=== PATIENT | female | born 1980 | race Two or more races ===

== ENCOUNTER 2017-08-24 21:21 | Emergency (ER) | payer MEDICAID ==
[~2017-08-24] VITALS: Ht 165.1 cm; Wt 76.7 kg
[2017-08-24] MEDS ORDERED: NKM (21:56)
[2017-08-24 22:00] VITALS: BP 117/77
[2017-08-24] MEDS ORDERED: Lidocaine 1% Plain 30 ml INJ ONE (22:30)
--- NOTE | 2017-08-24 22:34 | Emergency Room Report ---
History of Present Illness General Chief Complaint: General Complaint Source: Patient Present Illness HPI 37-year-old female no significant past medical history presenting with lump to neck that has been painful for the last week. States that she's had a small bump there for the last year, however states that for the last week it's gotten bigger and more painful. No fever no chills. No history of abscesses in the past Allergies: Coded Allergies: No Known Allergies (Unverified , 08/24/17) Patient History Past Medical History: see triage record Past Surgical History: none Pertinent Family History: none Last Menstrual Period: LAST MONTH Reviewed Nursing Documentation: PMH: Agreed; PSxH: Agreed Nursing Documentation-PMH Past Medical History: No Stated History Review of Systems All Other Systems: negative except mentioned in HPI Physical Exam Vital Signs Date Time Temp Pulse Resp B/P (MAP) Pulse Ox O2 Delivery O2 Flow Rate FiO2 08/24/17 21:46 98.5 72 16 117/77 97 Room Air 98.4 Sp02 EP Interpretation: reviewed, normal General Appearance: alert, GCS 15, non-toxic, mild distress Head: normocephalic, atraumatic Eyes: bilateral eye normal inspection, bilateral eye PERRL, bilateral eye EOMI ENT: normal ENT inspection, normal pharynx, normal voice, moist mucus membranes Neck: other - Back of neck, left-sided, 2 x 2 area of fluctuant mass, tender Respiratory: normal inspection, lungs clear, normal breath sounds, no respiratory distress, no retraction, no wheezing, speaking full sentences, chest symmetrical Cardiovascular #1: normal inspection, regular rate, rhythm, normal capillary refill Cardiovascular #2: 2+ radial (R), 2+ radial (L) Gastrointestinal: normal inspection, non tender, soft, no guarding Musculoskeletal: normal inspection, back normal, normal range of motion, non- tender Neurologic: normal inspection, alert, oriented x3, responsive, motor strength/ tone normal, sensory intact, normal gait, speech normal Psychiatric: normal inspection, judgement/insight normal, memory normal Skin: normal inspection, normal color, no rash, warm/dry, well hydrated, normal turgor Procedures Incision and Drainage Incision and Drainage : Consent: Verbal Site: back iof neck L side Blade Size: 11 I & D Procedure: betadine prep, sterile drapes applied, sterile dressing applied, gauze wick placed Wound's Depth, Shape: superficial Wound Length (cm): 2 Wound Explored: clean Anesthesia: 1% Lidocaine Volume Anesthetic (ccs): 4 Patient Tolerated: Well Complications: None Progress no purulent drainage aspirated Medical Decision Making Diagnostic Impression: Primary Impression: Abscess Additional Impression: Infected cyst of skin ER Course 37-year-old f p/w bump/swelling to back of neck DDX: abscess Plan: Incision and drainage, DC home with ABX ER course: Bedside ultrasound performed by me showing anechoic fluid with some debris about 2 x 2 centimeters Incision and drainage performed. No pus aspirated Disposition: Patient discharged to home with keflex and doxycycline. Patient instructed to follow up in ED or primary care doctor's office to wound recheck in 48 hours without fail. Patient cautioned to return to ED if there is rapid spread of rash, high fever or chills. Patient verbalized understanding and agrees with plan. Please note that this Emergency Department Report was dictated using [employer] frequency checker technology software, occasionally this can lead to erroneous entry secondary to interpretation by the dictation equipment. Last Vital Signs Date Time Temp Pulse Resp B/P (MAP) Pulse Ox O2 Delivery O2 Flow Rate FiO2 08/24/17 21:46 98.5 72 16 117/77 97 Room Air 98.4 Disposition: HOME, SELF-CARE Condition: Improved Scripts Doxycycline Monohydrate* (DOXYCYCLINE MONOHYDRATE*) 100 Mg Capsule 100 MG ORAL Q12H for 7 Days, #14 CAP 0 Refills Prov: Scott Burdick M.D. 08/24/17 Cephalexin* (KEFLEX*) 500 Mg Capsule 500 MG ORAL Q6H, #28 CAP 0 Refills Prov: Scott Burdick M.D. 08/24/17 NaveenoScott M.D. Aug 24, 2017 22:34
[2017-08-24] MEDS ORDERED: DOXYCYCLINE MO100 MG ORAL (23:07)
[2017-08-24] MEDS ORDERED: KEFLEX500 MG ORAL (23:07)
[2017-08-24 23:15] VITALS: BP 117/77
== END 2017-08-24 23:15 | disposition home or self-care (01) ==
LOC: EMR 22:44
DX: L02.11 Cutaneous abscess of neck (principal); L72.9 Follicular cyst of the skin and subcutaneous tissue, unspecified; L08.89 Other specified local infections of the skin and subcutaneous tissue
CPT/HCPCS: 10060; 99284; J2001